=== PATIENT | female | born 1955 | race Caucasian/White ===

== ENCOUNTER → 2020-06-18 13:19 | Outpatient (CLI) | payer MEDICARE, SELFPAY ==
--- NOTE | 2020-06-18 13:25 | US_ITS ---
STUDY: SUPERFICIAL ULTRASOUND - BILATERAL PLEURAL SPACES. REASON FOR EXAM: Female, 64 years old. Pleural effusion TECHNIQUE: A superficial ultrasound was performed with real-time and static pang-scale imaging. COMPARISON: None. FINDINGS: Both right and left pleural spaces were examined by ultrasound. No evidence of pleural effusion. US/Chest IMPRESSION: No evidence of pleural effusion. Electronically Signed: Norbert Lyn, at 15:52 EST , Service support ,
[2020-06-18 13:40] VITALS: BP 116/44; PULSE 101; RESP 18; TEMP 36.8; O2SAT 96
== END ==
PROVIDERS: PCP Family Medicine
DX: J90 Pleural effusion, not elsewhere classified (principal)
CPT/HCPCS: 76604

== ENCOUNTER 2020-06-20 15:03 | Emergency (ER) | payer MEDICARE, SELFPAY ==
[2020-06-20 15:05] VITALS: BP 122/91; PULSE 108; RESP 20; TEMP 36; O2SAT 94; BMI 29.2
--- NOTE | 2020-06-20 16:01 | EKG12_ITS ---
Test Reason : Blood Pressure : / mmHG Vent. Rate : 098 BPM Atrial Rate : 098 BPM P-R Int : 172 ms QRS Dur : 086 ms QT Int : 352 ms P-R-T Axes : 066 054 139 degrees QTc Int : 449 ms Normal sinus rhythm Nonspecific T wave abnormality Abnormal ECG Confirmed by SHERI HARE, HEBER ([id number]), loan expeditor ADITI REDD ([id number]) on 06/21/2020 12:07:36 PM Referred By: VOLODYMYR Confirmed By:DEAN WADE MD
--- NOTE | 2020-06-20 16:02 | ED.VIS.GEN ---
History of Present Illness Chief Complaint: Chest Other Narrative: Patient presents with feeling somewhat intermittent lightheaded. She also is complaining of her feet being jittery. She was at her [facility] for routine appointment, apparently she had positive orthostatics. She was sent for a cardiac work-up. She had recently triple bypass about a month and a half ago and has not had any issues since she denies any chest pain, shortness of breath fever or chills. Past Medical History - Allergies and Home Meds Allergies/Adverse Reactions: Allergies No Known Allergies Allergy (Verified 06/20/20 15:09) Primary Care Physician: Min Pizarro MD [Primary Care Provider] - 3-5 Days Past Medical History: - - Cardiac disease, hypertension, hypercholesterolemia, bypass as in HPI Lives: - - Noncontributory Review of Systems All systems negative except as indicated General: Reports: - - Some lightheadedness. Denies: Fever ENT: Denies: Rhinorrhea, Sore throat Cardiovascular: Denies: Chest pain, Palpitations Respiratory: Denies: Dyspnea, Cough Gastrointestinal: Denies: Abdominal pain Musculoskeletal: Denies: Myalgias Skin: Denies: Rash Neurological: Denies: Headache, Weakness Psych: Denies: Depression Endocrine: Denies: Polydipsia Hematologic: Denies: Easy bleeding Allergy: Denies: Uticaria Physical Exam Vital Signs/Narrative: Vital Signs Temp Pulse Resp BP Pulse Ox 06/20/20 15:05 96.8 F L 108 H 20 H 122/91 H 94 General: Well nourished, Well developed Head: Normocephalic Eyes: Perrl, EOMI ENT: Moist mucous membranes Neck: Supple Cardiovascular: Regular rate, Regular rhythm Respiratory: No distress, CTA bilaterally Abdomen: Soft, Nontender Back: Nontender, Normal Inspection Extremities: Nontender, No edema Skin: Normal color Neurological: Alert, Normal Strength, Normal Sensation Diagnostic/Tx/Re-eval - Rhythm Strip Rhythm Strip: Sinus Rhythm Rate: 98 Ectopy: None - EKG Initial EKG Interpretation: - - Sinus rhythm with a rate of 98. Normal MA and QTc intervals. Nonspecific T wave changes these are unchanged from the office. - Medical Decision Making Patient has a normal emergency department work-up. She appears well. No evidence of ischemia she is actually asymptomatic therefore I believe she is stable for discharge. ED Disposition - Plan for ED Patient: Disposition: Home or Assisted Living Diagnosis: Lightheaded Instructions: ED Dizziness [facility] Prescriptions: Sumatriptan Succinate [Imitrex] 25 mg PO .X1 PRN #5 tab Transmission Status: Pending to [id number] Referrals: Min Pizarro MD [Primary Care Provider] - 3-5 Days
--- NOTE | 2020-06-20 16:10 | RAD_ITS ---
STUDY: X-RAY CHEST REASON FOR EXAM: Female, 64 years old. TRIPLE BYPASS 05/14. ELEVATED HR WITH STANDING AND LOW PULSE OX WITH STANDING. OCCASIONAL MIDSTERNAL CP. TECHNIQUE: Single AP portable view of the chest. COMPARISON: None. FINDINGS: Status post median sternotomy. Some lingular discoid atelectasis. Tiny left-sided pleural effusion. Normal size heart. Normal mediastinum and kristel. Normal visualized pulmonary arteries. Normal visualized aortic arch and descending thoracic aorta. Normal visualized thoracic spine. Normal visualized ribs, clavicles, and shoulders. There is no demonstrated abnormality of the visualized soft tissue structures of the upper abdomen. RAD/Chest 1 View (Portable) IMPRESSION: Some lingular discoid atelectasis and a tiny left pleural effusion. Electronically Signed: Christian Torres MD at 16:28 EST Tel , Service support ,
[2020-06-20 16:17] LABS: Absolute Lymphocyte Count 2.83 X10^3/uL (0.83-4.51); Absolute Neutrophil Count 5.7 X10^3/uL (2.0-7.7); Basophil# 0.04 X10^3/uL; Basophil% 0.4 % (0-1); Eosinophils% 3.1 % (0-5); Hematocrit 33.9 % (37-47); Hemoglobin 10.9 g/dL (12.0-15.0); Lymphocyte # 2.83 X10^3/ul (4.0); Lymphocyte % 29.3 % (19-41); Mean Corp Hgb Conc 32.2 g/dL (32-36); Mean Corpuscular Hgb 30.5 pg (27.0-32.0); Mean Platelet Vol. 9.3 fl (6.2-12.0); Monocyte# 0.81 X10^3/uL; Monocyte% 8.4 % (0-10); NRBC Flagged by Analyzer 0 % (0-5); Neutrophil # 5.66 X10^3/uL (2.7-7.7); Neutrophil % 58.6 % (47-70); Platelet Count 408 K/mm3 (150-450); RBC Distribution Width SD 48.1 fl (35.1-43.9); Red Blood Count 3.57 M/mm3 (4.2-5.4); White Blood Count 9.7 K/mm3 (4.4-11.0)
[2020-06-20] MEDS: Aspirin 81 MG TAB.CHEW 324 MG PO (16:20)
[2020-06-20 16:36] LABS: Anion Gap 6 (5-15); BUN 18 mg/dL (7-18); Calcium,Total 9.4 mg/dL (8.5-10.1); Chloride 105 mmol/L (98-107); EST Glomerular Filtration Rate 67 mL/min (>60); Est Glom Filt Rate - Afr Amer 81 mL/min (>60); Estimated Creatinine Clearance 57.56 ml/min; Glucose 103 mg/dL (74-106); Potassium 3.6 mmol/L (3.5-5.1); Sodium Level 139 mmol/L (136-145)
[2020-06-20 17:14] VITALS: BP 131/73; PULSE 84; RESP 19; O2SAT 95
--- NOTE | 2020-06-20 18:26 | ED.RN ---
THIS RN TO BEDSIDE TO DISCHARGE PATIENT, PATIENT IS NOT IN ROOM, BELONGINGS ARE GONE, GOWN IS SITTING ON THE GOWN. ASSUMED LEFT PRIOR TO RECEIVING DISCHARGE INSTRUCTIONS.
== END 2020-06-20 18:28 | disposition home or self-care (01) ==
PROVIDERS: Emergency Provider Emergency Medicine; PCP Family Medicine
DX: R42 Dizziness and giddiness (principal)
CPT/HCPCS: 71045; 80048; 84484; 85025; 93005; 99285; A4216